=== PATIENT | female | born 1995 | race Caucasian/White ===

== ENCOUNTER 2018-07-19 05:41 | Inpatient (IN) | payer MEDICAID ==
[2018-07-19] VITALS (9 sets, daily range): BP systolic 116–168; BP diastolic 73–105; PULSE 84–99; RESP 16–20; Ht 154.9 cm; Wt 67.8 kg
[~2018-07-19] VITALS: Ht 154.9 cm; Wt 67.8 kg
[2018-07-19] MEDS ORDERED: LACTATED RINGER'S 1,000 ML IV SCH (06:04)
[2018-07-19] MEDS ORDERED: LACTATED RINGER'S 1,000 ML IV PRN (06:04)
[2018-07-19] MEDS ORDERED: MAGNESIUM SULFATE 20 GM/500 ML 500 ML IV SCH (06:09)
[2018-07-19] MEDS ORDERED: METHYLERGONOVINE 0.2 MG INJ IM PRN (06:30)
[2018-07-19] MEDS ORDERED: BUTORPHANOL 1 MG INJ IV PRN (06:30)
[2018-07-19] MEDS ORDERED: OXYTOCIN 30 UNITS/LR 500 ML IV SCH ×3 (06:30→07:04)
[2018-07-19] MEDS ORDERED: IBUPROFEN 600 MG TAB PO PRN (06:30)
[2018-07-19] MEDS ORDERED: LABETALOL HCL 20MG INJ IV ONE ×2 (06:30→07:30)
[2018-07-19] MEDS ORDERED: BUTORPHANOL 2 MG INJ IV PRN (06:30)
[2018-07-19] MEDS ORDERED: MAGNESIUM SULFATE 4 GM/100 ML 100 ML IVPB ONE (06:30)
[2018-07-19] MEDS ORDERED: LIDOCAINE 1% (MPF) 30 ML INJ INJ PRN (06:30)
[2018-07-19] MEDS ORDERED: CA GLUCONATE (GM) 10% 10ML INJ IV PRN ×2 (06:30→07:30)
[2018-07-19] MEDS ORDERED: AMPICILLIN 2 GM/NS (PMX) 100 ML IV ONE (06:30)
[2018-07-19] MEDS ORDERED: CARBOPROST 250 MCG INJ IM PRN ×2 (06:30→07:30)
[2018-07-19] MEDS ORDERED: MISOPROSTOL 200 MCG TAB PR PRN ×2 (06:30→07:30)
[2018-07-19] MEDS ORDERED: OXYTOCIN 30 UNITS/LR 500 ML IV PRN ×2 (06:30→07:30)
--- NOTE | 2018-07-19 06:59 | HP ---
Date/Time of Note Date/Time of Note DATE: 07/19/18 TIME: 06:54 OB - History Hx of Present Free Text/Dictation 07/19/2018 : 4 Para: 3 Spontaneous : 0 Therapeutic : 0 Care: Good Care Other Concerns: 22-year-old with IUP at 38 weeks and 4 days and care with Dr. Wally Rodríguez, presented with complaint of contractions and was noted to be 5 cm dilated/90/0 station, vertex presentation She was noted to be in labor. Her blood pressure was in the range of 189/101 when she arrived. She denies any headache, blurred vision epigastric pain or right upper quadrant pain. She reports history of PIH and prior but denied any history of hypertension and current . The patient was admitted for labor management. Due to elevated blood pressure in the severe range PIH panel requested and patient was a started on magnesium for seizure prophylaxis. Patient had brisk patellar reflexes Records were not available Past Family/Social History * Past Medical, Surgical, Family and Obstetric Histories reviewed from chart. OB Admission Exam Physical Exam Lungs: Clear Abdomen: WNL Cervical Dilatation: 5cm Effacement: 100% Station: 0 Membranes: Ruptured Heart Rate: 130's Accelerations: Accelerations Present Varibility: Moderate Contractions on Admission: < 5 Minutes Apart Intensity: Moderate Last 72 hours Lab Results CBC & BMP 07/19/18 06:10 OB Assessment/Plan Reason for admission: active labor Other Assessment: IUP at 38 weeks and 4 days Active labor GBS unknown elevated blood pressure in the range of severe preeclampsia Brisk reflexes, History of PIH and prior Meet the criteria for severe preeclampsia based on blood pressure criteria. And brisk reflexes Patient will be admitted for labor management Start ampicillin for GBS prophylaxis . PIH labs requested Start magnesium for seizure prophylaxis due to severe range hypertension Plan of care discussed with RN Anticipate Patient declined epidural Monitor the blood pressure closely Manage hypertension with IV hypertension medication per Guidelines BHARAT HERNANDEZ MD Jul 19, 2018 06:59
[2018-07-19] MEDS ORDERED: PREN-99 PO (07:00)
--- NOTE | 2018-07-19 07:01 | LDN ---
Date/Time of Note Date/Time of Note DATE: 07/19/18 TIME: 06:59 Delivery Summary July 19, 2018 Weeks of Gestation 38 weeks and 4 days Placenta Delivered: Spontaneously Meconium: none Episiotomy: No Indication for episiotomy N/A Perineal laceration: 1 Laceration repair: First-degree perineal laceration repaired after local infiltration of 1% epinephrine using 3-0 chromic Anesthesia type: None Estimated blood loss: 200 Sponge & Needle done & correct: Yes All needle counts correct: Yes Any foreign bodies felt in the: No Delivery Information Sex Infant Sex: female Apgars 1 Minute: 8 5 Minute: 9 Suctioning Nose & mouth suctioned at yohana: Yes Delee suction performed: Yes Umbilical Cord Umbilical cord with: 3 Vessels Cord presentations: no nuchal cord Cord Blood was obtained: Yes (After delivery of the baby nose and mouth was suctioned using DeLee suction. Cord was clamped and cut. Baby was handed to the nursing team. Placenta delivered spontaneously and intact. Fundus was firm at the end of the delivery. Cord blood was obtained. Using 3-0 chromic the first-degree perineal laceration repaired after local infiltration with 2 cc 1% lidocaine. Hemostasis was complete at the end of the delivery.) BHARAT HERNANDEZ MD Jul 19, 2018 07:01
[2018-07-19] MEDS: MAGNESIUM SULFATE 20 GM/500 ML 500 ML IV SCH ×2 (07:04→20:31)
[2018-07-19] MEDS: LACTATED RINGER'S 1,000 ML IV SCH (07:04)
--- NOTE | 2018-07-19 07:16 | TRIAGE ---
OB Triage Datetime Report Generated by CPN: 07/19/2018 07:16 Datetime: 07/19/2018 06:00 Stage of : OB Triage Assessment Type: Admission Assessment Maternal Assessment Level of Consciousness: Fully Conscious DTR's/Clonus: DTRs 2+; No Clonus Headache: Denies Blurred Vision: No Respiratory Effort: Unlabored; Regular Rhythm; Equal Expansion Breath Sounds, Left: Clear and Equal Breath Sounds, Right: Clear and Equal Nausea/Vomiting: Denies RUQ Epigastric Pain: Denies Lower Extremities Edema: None Degree: None Upper Extremities Edema: None Degree: None Facial Edema: None Temperature Route: Oral Fall Risk Assessment History of Falling: (0) No Secondary Diagnosis: (0) No Ambulatory Aid: (0) Bedrest/Nurse Assist IV Therapy: (20) Yes Gait: (0) Normal/Bedrest/Immobile Mental Status: (0) Oriented to Own Ability Labor Evaluation Frequency: 2-3 Monitor Mode: External Duration (sec)2399: 50-100 Pattern: Normal: <= 5 Contractions in 10 Minutes Resting Tone [place]: Relaxed Heart Rate FHR Baseline Rate: 140 Monitor Mode: External US Variability: Moderate 6-25 bpm Accelerations: 15X15 Decelerations: Early Category: Category I Pain Assessment Pain Scale: 7 Pain Presence: Intermittent Pain Type: Contraction Pain Location: Abdomen Pain Goal: 3 Pain Relief Measures: Comfort Measures Datetime: 07/19/2018 05:51 Vaginal Exam Dilatation (cms): 5.0 Effacement (%): 90 Station: 0 Exam By: Cecily MISTRY/Rylie MISTRY Membrane Status: Ruptured Membranes Ruptured Date/Time: 07/19/2018 03:00 Membranes Rupture Method: Spontaneous Amniotic Fluid Color: Clear Amniotic Fluid Amount: Small Amniotic Fluid Odor: Normal Datetime: 07/19/2018 05:48 Monitor Mode: External Monitor Mode: External US Comments: FHR: 140 Datetime: 07/19/2018 05:43 Presentation 'A': Cephalic Datetime: 07/19/2018 05:35 Time of Arrival: 07/19/2018 05:35 Arrived By: Wheelchair Arrived From: Home Chief Complaint: Contractions since 0430 Movement: Present Contractions: Regular Time Contractions Began: 07/19/2018 04:30 Contractions: 2-3 Rupture of Membranes: Ruptured Vaginal Bleeding: Normal Show Vaginal Discharge: Denies Recent Sexual Intercouse: Denies Abdominal Trauma: Not Applicable Patient Complaints: Contractions; Cramping Time Provider Notified: 07/19/2018 06:00 Initial Plan: EUNICE BLOUNT
[2018-07-19] MEDS ORDERED: HYDROCODONE/APAP (5/325) TAB PO PRN (07:30)
[2018-07-19] MEDS ORDERED: LABETALOL HCL 20MG INJ IV PRN ×2 (07:30)
[2018-07-19] MEDS ORDERED: DIPHENHYDRAMINE 25 MG CAP PO PRN (07:30)
[2018-07-19] MEDS ORDERED: WITCH HAZEL/GLYCERIN PAD PR PRN (07:30)
[2018-07-19] MEDS ORDERED: ZOLPIDEM 5 MG TAB PO PRN (07:30)
[2018-07-19] MEDS ORDERED: ONDANSETRON 4 MG INJ IV PRN (07:30)
[2018-07-19] MEDS ORDERED: NACL 0.9% 3 ML SYG IV SCH (07:30)
[2018-07-19] MEDS ORDERED: LANOLIN HPA 1 PKT TOP PRN (07:30)
[2018-07-19] MEDS: NIFEdipine 10 MG CAP PO SCH ×3 (08:01→21:14)
[2018-07-19] MEDS ORDERED: AMPICILLIN 1 GM/NS (PMX) 50 ML IV SCH (10:30)
[2018-07-19] MEDS: SENNA/DOCUSATE NA (8.6MG/50MG) TAB PO SCH ×2 (16:10→20:30)
[2018-07-20] VITALS (10 sets, daily range): BP systolic 120–152; BP diastolic 73–94; PULSE 78–99; RESP 16–19
[2018-07-20] MEDS: LACTATED RINGER'S 1,000 ML IV SCH (00:02)
[2018-07-20] MEDS: NIFEdipine 10 MG CAP PO SCH ×4 (03:00→21:22)
[2018-07-20] MEDS: MAGNESIUM SULFATE 20 GM/500 ML 500 ML IV SCH (03:04)
[2018-07-20] MEDS: SENNA/DOCUSATE NA (8.6MG/50MG) TAB PO SCH ×2 (09:03→21:22)
[2018-07-20] MEDS ORDERED: VITAMIN A & D 5 GM OINT PACKET TOP ONE (21:46)
[2018-07-21] MEDS: NIFEdipine 10 MG CAP PO SCH ×3 (03:00→15:45)
[2018-07-21 03:30] VITALS: BP 133/82; PULSE 79; RESP 19
[2018-07-21 08:30] VITALS: BP 154/86; PULSE 100; RESP 18
[2018-07-21] MEDS ORDERED: DIPHTH/TET/ACEL PERTUSS (ADULT) 0.5 ML VIAL IM* ONE (09:00)
[2018-07-21] MEDS ORDERED: VARICELLA VACCINE LIVE/PF 1,350 UNIT/0.5 ML ML SC* ONE (09:00)
[2018-07-21] MEDS ORDERED: MEASLES,MUMPS,RUBELLA VACCINE INJ SC* ONE (09:00)
[2018-07-21] MEDS: SENNA/DOCUSATE NA (8.6MG/50MG) TAB PO SCH (09:15)
[2018-07-21 09:30] VITALS: BP 113/61; PULSE 105; RESP 19
[2018-07-21 12:00] VITALS: BP 118/65; PULSE 96; RESP 18
--- NOTE | 2018-07-21 13:13 | PN ---
Date/Time of Note Date/Time of Note DATE: 07/21/18 TIME: 13:05 OB Subjective Subjective Subjective Late entry note. Patient seen on 07/20/2018 PPD# 1 Patient is doing well. She denies nausea, vomiting, shortness of breath, chest pain, headache. She has been ambulating without difficulty, tolerating regular diet. Pain is well controlled on current medications OB Objective Objective Objective General: AAO X 3, comfortable, NAD, appropriate mood and affect. Heart regular rhythm and rate Lungs clear to auscultation bilateral ABD: +BS. Soft, non-tender. Uterus 2 cm below umbilicus Flank: No CVA tenderness (B/L) LE: Mild edema. No clubbing, cyanosis, thigh or calf tenderness (B/L). Homans 'sign is negative OB Assessment/Plan Other plan: 22-year-old with PIH s/p normal vaginal delivery at 38 weeks and 4 days. PPD#1 - AF, VSS - Contraception methods with R/B/A/FR discussed - Continue care - She is currently on Procardia - Possible discharge home tomorrow - Rx and instruction given - Follow up in 2 and 6 weeks at clinic TOMMIE MARSHALL Jul 21, 2018 13:13
--- NOTE | 2018-07-21 13:17 | PN ---
Date/Time of Note Date/Time of Note DATE: 07/21/18 TIME: 13:13 OB Subjective Subjective Subjective PPD# 2 Patient is doing well. She denies nausea, vomiting, shortness of breath, chest pain, headache. She has been ambulating without difficulty, tolerating regular diet. Pain is well controlled on current medications OB Objective Objective Objective VS - Last 72 Hours, by Label Date Temp Pulse Resp B/P (MAP) Pulse Ox O2 O2 Flow FiO2 Time Delivery Rate 07/21/18 98.1 79 19 133/82 Room Air 03:30 (99) 07/20/18 98.9 95 19 147/94 Room Air 19:30 (111) 07/20/18 89 18 152/94 09:00 (113) 07/20/18 98.3 97 19 142/88 Room Air 08:00 (106) 07/20/18 91 120/79 Room Air 06:00 (93) 07/20/18 99 18 138/78 Room Air 05:00 (98) 07/20/18 98.3 92 18 129/81 Room Air 04:00 (97) 07/20/18 82 18 124/85 03:00 (98) 07/20/18 78 18 138/73 Room Air 02:00 (94) 07/20/18 99 16 129/79 Room Air 01:00 (96) 07/20/18 98.8 79 18 134/78 Room Air 00:49 (96) 07/19/18 89 18 134/85 23:00 (101) 07/19/18 99 18 129/80 Room Air 22:00 (96) 07/19/18 98.7 99 18 142/98 Room Air 21:00 (113) 07/19/18 98.7 95 18 139/88 20:00 (105) 07/19/18 91 18 132/80 Room Air 18:10 (97) 07/19/18 96 18 116/73 Room Air 17:10 (87) 07/19/18 98.3 96 18 123/78 Room Air 16:10 (93) 07/19/18 98.0 86 16 131/84 Room Air 13:00 (100) 07/19/18 98.0 84 20 168/105 Room Air 06:00 (126) General: AAO X 3, comfortable, NAD, appropriate mood and affect. Heart regular rhythm and rate Lungs clear to auscultation bilateral ABD: +BS. Soft, non-tender. Uterus 2 cm below umbilicus Flank: No CVA tenderness (B/L) LE: Mild edema. No clubbing, cyanosis, thigh or calf tenderness (B/L). Homans 'sign is negative OB Assessment/Plan Other plan: 22-year-old with PIH s/p normal vaginal delivery at 38 weeks and 4 days. PPD#2 - AF, VSS - Contraception methods with R/B/A/FR discussed - Continue care - Procardia changed to 30 mg XL daily from 10 mg q 6hrs - Possible discharge home today - Rx and instruction given - Follow up in 2 and 6 weeks at clinic TOMMIE MARSHALL Jul 21, 2018 13:17
[2018-07-21 16:00] VITALS: BP 133/81; PULSE 85; RESP 18
== END 2018-07-21 20:00 | disposition home or self-care (01) | DRG 807 ==
LOC: OBT 05:41 → L-D 05:45 → OBT 06:00 → L-D 06:00 → PP1 16:11
PROVIDERS: ADMIT Obstetrics & Gynecology; ATTEND Obstetrics & Gynecology
PROC: 10E0XZZ Delivery of Products of Conception, External Approach (ICD-10-PCS; principal; 2018-07-19)
PROC: 0HQ9XZZ Repair Perineum Skin, External Approach (ICD-10-PCS; 2018-07-19)
DX: O13.4 Gestational [pregnancy-induced] hypertension without significant proteinuria, complicating childbirth (principal); O70.0 First degree perineal laceration during delivery; Z37.0 Single live birth; Z3A.38 38 weeks gestation of pregnancy
CPT/HCPCS: 80053; 83735; 84560; 85025; 85610; 85730; 86592; 86850; 86900; 86901; 87340; 90716; G0463; J0290; J2590; J3475; J7120